=== PATIENT | male | born 1980 | race Caucasian/White ===

== ENCOUNTER → 2018-07-04 15:29 | Outpatient (CLI) | payer OTHER, SELFPAY ==
--- NOTE | 2018-07-04 15:34 | MR_ITS ---
MR knee RT wo con HISTORY: Medial knee pain, recent injury ITS.REASON: rule out MCL tear ORDERING PHYSICIAN: Dave Nagel MD PATIENT AGE: 38 years Comparison: 06/30/2018 TECHNIQUE: Standard multiplanar multiecho sequences are performed without contrast. FINDINGS: The cruciate ligaments, lateral collateral ligament, quadriceps tendon, and popliteal tendons haven't unremarkable appearance. There is discontinuity of the superior aspect of the medial collateral ligament at its insertion on the medial femoral condyle consistent with a grade 3 complete tear of the left MCL. Small amount of edema is present around the ligament tear. No meniscal tear is evident. The patellar cartilage is slightly thinned that homogeneous. There is minimal lateral patellar subluxation. The medial patellofemoral ligament also is discontinuous medially consistent with tear of the medial patellofemoral ligament. Small amount of edema is present within the soft tissues of the anterior medial aspect of the knee. No fracture or bone bruise. IMPRESSION: 1. Grade 3 complete tear of the medial collateral ligament superiorly with minimal retraction of the ligamentous fibers. 2. Tear of the medial patellofemoral ligament with edema in the soft tissues in the anteromedial aspect of the knee with minimal lateral patellar subluxation
== END ==
PROVIDERS: PCP Internal Medicine; Visit Provider Orthopaedic Surgery
DX: S83.401A Sprain of unspecified collateral ligament of right knee, initial encounter (principal); S89.91XA Unspecified injury of right lower leg, initial encounter
CPT/HCPCS: 73721

== ENCOUNTER 2018-07-12 10:38 | Outpatient (RCR) | payer OTHER, SELFPAY | END 2018-07-12 10:45 | disposition home or self-care (01) | LOC: PT 10:38 | PROVIDERS: Visit Provider Orthopaedic Surgery | DX: M25.561 Pain in right knee (principal) | CPT/HCPCS: 97760 ==

== ENCOUNTER → 2019-05-02 07:22 | Outpatient (CLI) | payer OTHER, SELFPAY ==
[2019-05-02 13:46] LABS: Alanine Aminotransferase 95 U/L (12-78); Albumin Level 4.1 g/dl (3.5-5.0); Albumin/Globulin Ratio 1.4 (1.1-1.8); Alkaline Phosphatase 60 U/L (38-126); Anion Gap 11.8 mEq/L (5-15); Aspartate Amino Transferase 49 U/L (17-59); Bilirubin,Total 0.6 mg/dl (0.2-1.3); Blood Urea Nitrogen 18 mg/dl (9-20); Calcium 9.2 mg/dl (8.4-10.2); Carbon Dioxide 25 mmol/L (22.0-30.0); Chloride 105 mmol/L (98-107); Chol/HDL Ratio 6.1 (1-3.5); Cholesterol 225 mg/dl (140-200); Estimated Glomerular Filt Rate 108 ml/min (>60); GFR (African American) 130 ML/MIN (>60); Glucose 127 mg/dl (74-100); HDL Cholesterol 37 mg/dl (40-60); Potassium 4.8 mmoL/L (3.5-5.1); Sodium 137 mmol/L (136-145); Total Protein,Serum 7.1 g/dl (6.3-8.2); Triglycerides 125 mg/dl (30-150); VLDL Cholesterol 25 mg/dL (0-40)
[2019-05-02 13:57] LABS: Direct LDL Cholesterol 188.52 mg/dL (100-129)
[2019-05-02 15:38] LABS: Hemoglobin A1C 6.7 % (4.0-6.0)
[2019-05-03 08:29] LABS: Hep A Ab, IgM Negative (Negative); Hepatitis B Core Antibody IgM Negative (Negative); Hepatitis B Surface Antigen Negative (Negative)
[2019-05-03 12:37] LABS: Hepatitis C Antibody <0.1 s/co ratio (0.0-0.9)
== END ==
PROVIDERS: Visit Provider Internal Medicine
DX: E78.5 Hyperlipidemia, unspecified (principal); E66.9 Obesity, unspecified; R94.5 Abnormal results of liver function studies; R73.09 Other abnormal glucose
CPT/HCPCS: 36415; 80053; 80061; 80074; 83036

== ENCOUNTER → 2020-06-03 08:21 | Outpatient (CLI) | payer OTHER, SELFPAY ==
[2020-06-03 09:01] LABS: Microscopic, Urine URINE MICROSCOPIC (MICROSCOPIC)
[2020-06-03 14:53] LABS: Basophils # 0.1 K/mm3 (0-0.2); Basophils % 0.7 % (0.1-2.0); Eosinophils # 0.4 K/mm3 (0.0-0.4); Eosinophils % 3.7 % (0.1-12.0); Hematocrit 47.1 % (42.0-52.0); Hemoglobin 15.8 g/dL (14.1-18.0); Lymphocytes # 3.1 K/mm3 (0.7-4.5); Lymphocytes % 28.7 % (10-50); Mean Corpuscular HGB Conc 33.5 g/dL (31.8-35.4); Mean Corpuscular Hemoglobin 30.2 pg (27.0-31.2); Mean Corpuscular Volume 90.2 fl (80-94); Mean Platelet Volume 8.2 fl (7.4-10.4); Monocytes # 0.6 K/mm3 (0.1-1.0); Monocytes % 5.5 % (1.7-9.3); Neutrophils # 6.5 K/mm3 (1.8-7.8); Neutrophils % 61.3 % (37.0-80.0); Platelet Count 299 K/mm3 (142-424); Red Blood Count 5.23 M/mm3 (4.60-6.20); Red Cell Distribution Width 13.6 % (11.5-17.5); White Blood Count 10.6 K/mm3 (4.8-10.8)
[2020-06-03 15:06] LABS: Appearance,Urine CLEAR (Clear); Bilirubin,Urine Negative (Negative); Blood, Urine Negative (Negative); Color,Urine YELLOW (Yellow); Glucose,Urine (UA) 1+ (Negative); Ketones,Urine Negative (Negative); Leukocyte Esterase,Urine Negative (Negative); Nitrate,Urine Negative (Negative); PH,Urine 5.5 (5.0-8.5); Protein,Urine Negative (Negative); Specific Gravity, Urine >= 1.030 (1.005-1.030); Urobilinogen,Urine 0.2 EU/dl (0.2)
[2020-06-03 15:10] LABS: Alanine Aminotransferase 174 U/L (12-78); Albumin Level 4.5 g/dl (3.5-5.0); Albumin/Globulin Ratio 1.5 (1.1-1.8); Alkaline Phosphatase 77 U/L (38-126); Anion Gap 13.7 mEq/L (5-15); Aspartate Amino Transferase 110 U/L (17-59); Bilirubin,Total 1.1 mg/dl (0.2-1.3); Blood Urea Nitrogen 14 mg/dl (9-20); Calcium 9.8 mg/dl (8.4-10.2); Carbon Dioxide 27 mmol/L (22.0-30.0); Chloride 102 mmol/L (98-107); Cholesterol 188 mg/dl (140-200); Estimated Glomerular Filt Rate 93 ml/min (>60); GFR (African American) 113 ML/MIN (>60); Glucose 222 mg/dl (74-100); HDL Cholesterol 47 mg/dl (40-60); Potassium 4.7 mmoL/L (3.5-5.1); Sodium 138 mmol/L (136-145); Total Protein,Serum 7.5 g/dl (6.3-8.2); Triglycerides 128 mg/dl (30-150); VLDL Cholesterol 26 mg/dL (0-40)
[2020-06-03 15:21] LABS: Direct LDL Cholesterol 120.56 mg/dL (100-129); Hemoglobin A1C 8.6 % (4.0-6.0)
[2020-06-03 15:26] LABS: 25-OH Vitamin D, Total 23.9 ng/mL (30-100)
[2020-06-03 15:40] LABS: Thyroid Stimulating Hormone 2.82 uIU/mL (0.465-4.68)
[2020-06-03 16:33] LABS: Bacteria,Urine Trace /lpf; RBC,Urine Occasional #/hpf (0-3); Squamous Epithelial Cell,Urine Occasional #/hpf (0-5)
== END ==
PROVIDERS: Visit Provider Internal Medicine
DX: D72.829 Elevated white blood cell count, unspecified (principal); E11.9 Type 2 diabetes mellitus without complications; I10 Essential (primary) hypertension; E55.9 Vitamin D deficiency, unspecified; E78.5 Hyperlipidemia, unspecified
CPT/HCPCS: 36415; 80053; 80061; 81001; 82043; 82306; 83036; 84443; 85025

== ENCOUNTER 2020-06-17 08:00 | Outpatient (RCR) | payer OTHER, SELFPAY | END 2020-07-03 13:50 | disposition home or self-care (01) | LOC: PT.CARL 08:00 | PROVIDERS: PCP Internal Medicine; Visit Provider Orthopaedic Surgery | DX: M79.671 Pain in right foot (principal); M19.071 Primary osteoarthritis, right ankle and foot; S93.524A Sprain of metatarsophalangeal joint of right lesser toe(s), initial encounter | CPT/HCPCS: 97110; 97112; 97140; 97163 ==

== ENCOUNTER 2021-01-24 09:49 | Emergency (ER) | payer OTHER, SELFPAY ==
[2021-01-24] VITALS (12 sets, daily range): BP systolic 118–150; BP diastolic 71–109; PULSE 60–73; RESP 15–22; TEMP 36.9; O2SAT 97–100; BMI 43.1
--- NOTE | 2021-01-24 09:49 | ECG_ITS ---
APPROVED REPORT Exam: Resting ECG HR:66 bpm ECG Measurements Heart Rate 66 AXES ME 178 P 34 QRSd 108 QRS 72 QT 396 T 51 QTc 415 Conclusion Normal sinus rhythm Normal ECG Electronically signed by : Forrest Germain MD 01/24/2021 19:26:39
--- NOTE | 2021-01-24 10:02 | XR_ITS ---
PROCEDURE INFORMATION: Exam: XR Chest Exam date and time: 01/24/2021 10:02 AM Age: 40 years old Clinical indication: Shortness of breath; Other: Generalized chest pain TECHNIQUE: Imaging protocol: XR of the chest. Views: 2 views. COMPARISON: No relevant prior studies available. FINDINGS: Lungs: No focal airspace disease. Pleural spaces: Unremarkable. No pleural effusion. No pneumothorax. Heart/Mediastinum: Cardiomediastinal silhouette is within normal limits. Bones/joints: Unremarkable. IMPRESSION: No acute cardiopulmonary abnormality.
--- NOTE | 2021-01-24 10:10 | PC.NURSE ---
Patient was taken to XRAY.
[2021-01-24 10:19] LABS: Basophils # 0.1 K/mm3 (0-0.2); Basophils % 1.1 % (0.1-2.0); Eosinophils # 0.2 K/mm3 (0.0-0.4); Eosinophils % 2.6 % (0.1-12.0); Hematocrit 49.8 % (42.0-52.0); Mean Corpuscular HGB Conc 34.2 g/dL (31.8-35.4); Mean Corpuscular Hemoglobin 30.5 pg (27.0-31.2); Mean Corpuscular Volume 89.1 fl (80-94); Mean Platelet Volume 7.6 fl (7.4-10.4); Monocytes # 0.5 K/mm3 (0.1-1.0); Monocytes % 5.6 % (1.7-9.3); Neutrophils # 4.8 K/mm3 (1.8-7.8); Neutrophils % 55.7 % (37.0-80.0); Platelet Count 277 K/mm3 (142-424); Red Blood Count 5.58 M/mm3 (4.60-6.20); Red Cell Distribution Width 13.2 % (11.5-17.5); White Blood Count 8.6 K/mm3 (4.8-10.8)
--- NOTE | 2021-01-24 10:20 | PC.NURSE ---
Patient is back in room from XRAY.
[2021-01-24 10:23] LABS: Chloride 102 mmol/L (98-107); Potassium 4.5 mmoL/L (3.5-5.1); Sodium 138 mmol/L (136-145)
[2021-01-24 10:26] LABS: Anion Gap 13.5 mEq/L (5-15); Blood Urea Nitrogen 18 mg/dl (9-20); Calcium 9.3 mg/dl (8.4-10.2); Carbon Dioxide 27 mmol/L (22.0-30.0); Creatinine Clearance Estimated 133 mL/min (50-200); Estimated Glomerular Filt Rate 107 ml/min (>60); GFR (African American) 129 ML/MIN (>60); Glucose 115 mg/dl (74-100)
[2021-01-24 10:40] LABS: Troponin I < 0.01 ng/ml (0.00-0.034)
--- NOTE | 2021-01-24 11:43 | HMH.EDGENADL ---
ED Disposition Clinical Impression: Chest pain Qualifiers: Chest pain type: unspecified Qualified Code(s): R07.9 - Chest pain, unspecified Disposition: Home, Self-Care Condition on Discharge: Good Referrals: Damon Renteria [Primary Care Provider] - Jens Blackburn MD [Staff Physician] - - Critical Care Critical Care Time: No Attestation: On 01/24/21, the high probability of a clinically significant, sudden or life threatening deterioration of the following system(s) required my full and direct attention, intervention and personal management. The time I documented below is in addition to time spent performing reported procedures but includes the following listed in this critical care notation. Medical Decision Making - Medical Records Medical records reviewed: Yes: I reviewed the patient's medical records. - Robbie Inquiry Pt receiving controlled substance: No Vital Signs: 01/24/21 10:05 01/24/21 10:58 01/24/21 11:01 Temperature 98.5 F Temperature Source Oral Pulse Rate 67 70 Pulse Rate [Left Radial] 70 Respiratory Rate 20 16 15 Blood Pressure 141/90 H 129/80 Blood Pressure [Right Arm] 134/83 Blood Pressure Mean 101 103 Blood Pressure Mean [Right Arm] 100 Blood Pressure Source [Right Arm] Automatic Cuff Blood Pressure Position [Right Arm] Sitting 02 Sat by Pulse Oximetry 99 97 97 Oxygen Delivery Method Room Air Room Air Room Air 01/24/21 11:31 01/24/21 12:00 01/24/21 12:31 Temperature Temperature Source Pulse Rate 64 66 63 Pulse Rate [Left Radial] Respiratory Rate 17 17 22 Blood Pressure 135/79 150/83 H 137/76 Blood Pressure [Right Arm] Blood Pressure Mean 95 100 92 Blood Pressure Mean [Right Arm] Blood Pressure Source [Right Arm] Blood Pressure Position [Right Arm] 02 Sat by Pulse Oximetry 97 99 100 Oxygen Delivery Method Room Air 01/24/21 13:01 01/24/21 13:12 01/24/21 13:14 Temperature Temperature Source Pulse Rate 73 66 66 Pulse Rate [Left Radial] Respiratory Rate 18 20 18 Blood Pressure 126/109 H 126/79 118/71 Blood Pressure [Right Arm] Blood Pressure Mean 113 94 86 Blood Pressure Mean [Right Arm] Blood Pressure Source [Right Arm] Blood Pressure Position [Right Arm] 02 Sat by Pulse Oximetry 99 100 99 Oxygen Delivery Method 01/24/21 13:30 01/24/21 14:00 Temperature Temperature Source Pulse Rate 60 63 Pulse Rate [Left Radial] Respiratory Rate 18 17 Blood Pressure 134/80 132/82 Blood Pressure [Right Arm] Blood Pressure Mean 94 98 Blood Pressure Mean [Right Arm] Blood Pressure Source [Right Arm] Blood Pressure Position [Right Arm] 02 Sat by Pulse Oximetry 100 100 Oxygen Delivery Method - Lab Data Lab Results 01/24/21 10:00: WBC 8.6, RBC 5.58, Hgb 17.0, Hct 49.8, MCV 89.1, MCH 30.5, MCHC 34.2, RDW 13.2, Plt Count 277, MPV 7.6, Neut % (Auto) 55.7, Lymph % (Auto) 35.0, [place] % (Auto) 5.6, Eos % (Auto) 2.6, Baso % (Auto) 1.1, Neut # (Auto) 4.8, Lymph # (Auto) 3.0, [place] # (Auto) 0.5, Eos # (Auto) 0.2, Baso # (Auto) 0.1 01/24/21 10:00: Sodium 138, Potassium 4.5, Chloride 102, Carbon Dioxide 27, Anion Gap 13.5, BUN 18, Creatinine 0.80, Estimated Creat Clear 133, Estimated GFR 107, Est GFR ( Amer) 129, Glucose 115 H, Calcium 9.3, Troponin I < 0.01 01/24/21 13:12: Troponin I < 0.01 Result diagrams: 01/24/21 10:00 01/24/21 10:00 Orders (Tests/Meds): ED MEDICATIONS Discontinued Medications Generic Name Dose Route Start Last Admin Trade Name Freq PRN Reason Stop Dose Admin Aspirin 324 mg 01/24/21 10:02 01/24/21 10:03 Aspirin 81mg Chewable Tablet PO 01/24/21 10:03 324 mg ONCE ONE Administration ORDERS Category Date Time Status Troponin I Q3H Lab 01/24/21 16:15 Ordered - COLT Score for Non-Stemi Age of Patient: 40-49 years old Heart Rate: 110-149 bpm Systolic Blood Pressure: 80-99 mmHg Serum Creatinine: 0.80-1.19 mg/dl CHF [place] Class: I-No CHF Other
[2021-01-24 14:00] LABS: Troponin I < 0.01 ng/ml (0.00-0.034)
== END 2021-01-24 14:30 | disposition home or self-care (01) ==
PROVIDERS: Emergency Provider Student in an Organized Health Care Education/Training Program; PCP Family Medicine
DX: R07.9 Chest pain, unspecified (principal); R42 Dizziness and giddiness; F33.1 Major depressive disorder, recurrent, moderate
CPT/HCPCS: 71046; 80048; 84484; 85025; 93005; 99283

== ENCOUNTER → 2021-02-11 06:16 | Outpatient (CLI) | payer OTHER, SELFPAY ==
--- NOTE | 2021-02-11 06:17 | CA_ITS ---
APPROVED REPORT Exam: Pharmacologic Technologist: Ivelisse Perdue, Ht: 6 ft 0 in Wt: 316 lbs BSA: 2.59 m2 HR: 63 bpm BP: 127/79 mmHg Rhythm: NSR/ PVCS, RIGHTWARD AXIS, T WAVE ABNS INFERIORLY Medical History Medical History: HTN, Hyperlipidemia, Diabetes Medications: Gabapentin,,,,, Fish Oil,,,,, Zetia,,,,, Atorvastatin,,,,, Escitalopram,,,,, D3,,,,, JaRDiance,,,,, Lisinopri/HCTZ,,,,, Allergies: No known drug allergies Cardiac Risk Factors: HTN, Hyperlipidemia, Diabetes Stress Test Details Test: LEXISCAN HR Resting HR: 64 bpm Max Heart Rate (APMHR): 179.451395 bpm Max HR Achieved: 108 bpm Target HR (85% APMHR): 152.609614 bpm % of APMHR: 60.34 Recovery HR: 80 bpm BP Resting BP: 127/79 mmHg Max BP: 142/76 mmHg Recovery BP: 123.0/80.0 mmHg ECG Resting ECG: NSR/ PVCS, RIGHTWARD AXIS, T WAVE ABNS INFERIORLY Clinical Exercise duration: 04:01 min Highest Stage Achieved: Exercise capacity: 1.0 METs Stress ECG Conclusion PT HAD BRIEF CHEST TIGHTNESS, SOA, DIZZY. MODERATELY FREQUENT PVCS. MILD EXAGGERATION OF BASELINE T WAVE ABNS. NON-DIAGNOSTIC LEXISCAN STRESS. MYOVIEW IMAGES REPORTED SEPARATELY. Test Summary REST 05:03 . . 64 . 127/ 79 . . Stage 1 01:00 . . 101 . . . . Stage 2 01:00 . . 95 . 141/ 89 . . Stage 3 01:00 . . 83 . 136/ 88 . . Stage 4 01:00 . . 87 . 131/ 79 . . Stage 4 01:01 . . 87 . 131/ 79 . Stop exercise at 04:01 RECOVERY 01:00 . . 79 . . . . RECOVERY 02:00 . . 86 . 142/ 76 . . RECOVERY 03:00 . . 82 . 123/ 80 . . RECOVERY 03:26 . . 84 . 123/ 80 . . Electronically signed by : Sadi Ziegler MD 02/11/2021 20:38:00
--- NOTE | 2021-02-11 06:17 | CA_ITS ---
APPROVED REPORT EXAM: Comprehensive 2D, Doppler, and color-flow Echocardiogram Film Developer: Gabbi Cuevas, RAZIA, RVS Ht: 6 ft 0 in Wt: 316lbs BSA: 2.59 BP: 120/80 mmHg Indications: Cp, SOB, HTN, DM, HLD, Abn EKG 2D Dimensions LVOT 2.09 cm (M/F) 1.5-2.5 LA Volume 55.20 mL LA Volume Index 21.30 mL/m2 (M/F) 16-34 M-Mode Dimensions RVDd 2.81 cm (0.9-2.6) LA Diam 4.04 cm (1.9-4.0) LVDd 5.02 cm (3.5-5.7) Ao Diam 2.95 cm (2.0-3.7) LVDs 3.19 cm (3.5-5.7) IVSd 1.22 cm (0.6-1.1) PWd 1.22 cm (0.6-1.1) EF (Teich) 66.00% EPSs 0.30 cm FS 36.50% EDV (Teich) 119.30 mL TAPSE 3.06 (<1.7) ESV (Teich) 40.60 mL LV Diastology E Decel Time 213.00 (160-240 msec) E/A Ratio 1.34 MED E' 7.80 (< 7 cm/sec) MED A' 9.40 cm/s E'/MED E' Ratio 13.21 (>14) LAT E' 10.50 (<10 cm/sec) LAT A' 7.70 cm/s E/LAT E' Ratio 9.81 (>14) Aortic Valve LVOT Max 112.00 (70-110 cm/s) LVOT VTI 26.47 cm AoV Peak [place]. 138.00 (50-130 cm/s) AO Peak GR. 7.70 mmHg AO Mean GR. 3.90 (<5 mmHg) AO VTI 32.62 (18-25 cm) SON (VTI) 2.78 (2.5-4.5 cm2) Mitral Valve MV A Velocity 77.00 (40-130 cm/s) E/A Ratio 1.34 MV Decel. Time 213.00 (160-240 ms) Pulmonary Valve PV Peak Velocity 111.00 (50-150 cm/s) Tricuspid Valve TR P. Velocity 168.00 cm/s RAP Estimate 10.00 mmHg RVSP 21.30 mmHg Left Ventricle Left atrium is normal size, left ventricle is normal size, there is no concentric left ventricular hypertrophy, visually estimated ejection fraction 55% with no regional wall motion abnormality, diastolic parameters are within normal range. Right Ventricle Right atrium and right ventricular size and contractility. Aortic Valve Aortic valve is grossly normal, there is no aortic stenosis or aortic insufficiency. Mitral Valve Mitral valve grossly normal, there is trace mitral regurgitation. Tricuspid Valve Tricuspid grossly normal, there is trace tricuspid regurgitation, tricuspid regurgitation jet velocity is inadequate for calculation of the right ventricular systolic pressure. Pulmonic Valve Pulmonic valve is poorly visualized. Great Vessels Aortic root is normal size. Inferior vena cava normal size with normal inspiratory collapse. Pericardium No significant pericardial effusion noted. Conclusion 1. Normal left ventricular size, preserved left ventricular systolic function, visually estimated ejection fraction 55% with no regional wall motion abnormality, diastolic parameters are within normal range. 2. Trace mitral and tricuspid regurgitation. 3. No significant pericardial effusion noted. 4. Inferior vena cava is normal size with normal inspiratory collapse. Electronically signed by : Sadi Ziegler MD 02/11/2021 20:15:43
--- NOTE | 2021-02-11 06:17 | CT_ITS ---
PROCEDURE: CT CHEST WO CON CLINICAL INDICATION: cp/dyspnea/abnl ecg COMPARISON: No exams were available for comparison TECHNIQUE: Axial images obtained with sagittal and coronal reformats. All CT scans at the facility use one or more dose reduction, viz: automated exposure control, ma/kV adjustment per patient size (including targeted exams where dose is matched to indication, i.e. head), or iterative reconstruction technique. FINDINGS: HEART AND MEDIASTINAL STRUCTURES: The left lobe of the thyroid gland is enlarged with heterogeneous density and coarse calcification. The left lobe measures at least 5.3 x 3.5 cm with the superior aspect of the thyroid gland not imaged. There is moderate rightward tracheal deviation by approximately 1.4 cm with moderate narrowing of the trachea... The no mediastinal or hilar mass or adenopathy. LUNGS AND PLEURAL SPACES: Unremarkable. BONY STRUCTURES: No acute bony abnormalities apparent. UPPER ABDOMEN: Possible cholelithiasis. There are few scattered small nodes in the mesenteric axis region and periportal area. These are nonspecific. ADDITIONAL FINDINGS: Gynecomastia IMPRESSION: 1. Enlarged left lobe of the thyroid gland with heterogeneous density and coarse calcifications consistent with left-sided goiter. This is causing moderate tracheal shift to the right by 1.4 cm and moderate narrowing of the trachea. 2. Other nonacute findings as described above. Dictated by: Lizandro Mcgovern MD 02/12/2021 08:09 Lizandro Mcgovern MD in [facility] 02/12/2021 08:09
--- NOTE | 2021-02-11 06:17 | NM_ITS ---
APPROVED REPORT Exam: Nuclear Stress Test Indication: Chest pain, SOB, Abnormal EKG, HTN, DM, High cholesterol, Family history Patient Location: Outpatient Stress Tech: Ivelisse Perdue ID Tech:Esperanza Alberts, ARRT, RT (R)(N) Ht: 6 ft 0 in Wt: 318 lbs HR: 64 bpm BP: 127/79 mmHg BSA: 2.59 m2 History: Chest pain, SOB, Abnormal EKG, HTN, DM, High cholesterol, Family history Procedure: Patient received a 0.4 mg of intravenous Lexiscan, resting heart rate 64 bpm, resting blood pressure 127/79 mmHg, with Lexiscan maximum heart rate achived was 108 bpm which is Less than 85 % of the maximum predicted heart rate and blood pressure was 142/76 mmHg. With Lexiscan, patient denied any complaint of chest pain. Electrocardiogram Resting electrocardiogram shows sinus rhythm, with Lexiscan there is less than 1.[address] segment depression noted from the baseline EKG. The EKG portion of the Lexiscan is nondiagnostic. Cardiac Stress and Resting SPECT Images: Cardiac Stress and Resting SPECT images were obtained using technetium 99m Myoview 31.8 mCi stress and 10.10 mCi at rest. Gated SPECT for analysis of segmental wall motion and calculation of the ejection fraction also done. Cardiac stress and resting SPECT images show uniform myocardial activity without segmental perfusion abnormality, computer derived ejection fraction 50% with no regional wall motion abnormality, however there is transient ischemic dilatation of the left ventricle seen, raising the concerns for presence of balanced ischemia. Conclusion: 1. The EKG portion of the Lexiscan is nondiagnostic. 2. No scintigraphic evidence of reversible ischemia seen, computer derived ejection fraction is 50% with no regional wall motion abnormality, right ventricle is normal size and contractility. However there is transient ischemic dilatation of the left ventricle seen, raising the concern for presence of balanced ischemia other causes for transient ischemic dilatation includes hypertensive heart disease, elevated left ventricular diastolic dysfunction, diabetes mellitus and microvascular disease. Clinical correlation is recommended. 3. Abnormal Lexiscan Myoview study. Electronically signed by : Sadi Ziegler MD 02/11/2021 21:00:02
--- NOTE | 2021-02-11 08:14 | HMH.ITSHM ---
Current Home Medications as stated by this patient Misael Salinas or maintenance representative. []OMEGA 3 LISINOPRIL GABAPENTIN EZETIMIBE EMPAGLIFLOZIN VITAMIN D3 ATORVASTATIN LEXAPRO
== END ==
PROVIDERS: PCP Family Medicine; Visit Provider Physician Assistant
DX: R06.00 Dyspnea, unspecified (principal); R07.9 Chest pain, unspecified; I10 Essential (primary) hypertension; R94.31 Abnormal electrocardiogram [ECG] [EKG]; E11.9 Type 2 diabetes mellitus without complications; E78.5 Hyperlipidemia, unspecified
CPT/HCPCS: 71250; 78452; 93017; 93306; A9502; J2785

== ENCOUNTER → 2021-02-24 11:14 | Outpatient (CLI) | payer OTHER, SELFPAY ==
[2021-02-24 12:09] LABS: Basophils # 0.1 K/mm3 (0-0.2); Basophils % 0.6 % (0.1-2.0); Eosinophils # 0.3 K/mm3 (0.0-0.4); Eosinophils % 2.8 % (0.1-12.0); Hematocrit 50.5 % (42.0-52.0); Hemoglobin 17.2 g/dL (14.1-18.0); Lymphocytes # 2.9 K/mm3 (0.7-4.5); Lymphocytes % 32.9 % (10-50); Mean Corpuscular HGB Conc 34.1 g/dL (31.8-35.4); Mean Corpuscular Hemoglobin 30.7 pg (27.0-31.2); Mean Platelet Volume 7.2 fl (7.4-10.4); Monocytes # 0.5 K/mm3 (0.1-1.0); Monocytes % 5.9 % (1.7-9.3); Neutrophils # 5.2 K/mm3 (1.8-7.8); Neutrophils % 57.8 % (37.0-80.0); Platelet Count 285 K/mm3 (142-424); Red Blood Count 5.61 M/mm3 (4.60-6.20); Red Cell Distribution Width 12.6 % (11.5-17.5); White Blood Count 8.9 K/mm3 (4.8-10.8)
[2021-02-24 12:50] LABS: Chloride 101 mmol/L (98-107)
[2021-02-24 12:51] LABS: Potassium 4.9 mmoL/L (3.5-5.1); Sodium 136 mmol/L (136-145)
[2021-02-24 12:54] LABS: Anion Gap 12.9 mEq/L (5-15); Blood Urea Nitrogen 17 mg/dl (9-20); Calcium 9.3 mg/dl (8.4-10.2); Carbon Dioxide 27 mmol/L (22.0-30.0); Estimated Glomerular Filt Rate 107 ml/min (>60); GFR (African American) 129 ML/MIN (>60); Glucose 110 mg/dl (74-100)
== END ==
PROVIDERS: Visit Provider Physician Assistant
DX: Z01.812 Encounter for preprocedural laboratory examination (principal); Z11.52 Encounter for screening for COVID-19; R06.00 Dyspnea, unspecified; I20.9 Angina pectoris, unspecified; R94.30 Abnormal result of cardiovascular function study, unspecified; R94.31 Abnormal electrocardiogram [ECG] [EKG]; I10 Essential (primary) hypertension; E11.9 Type 2 diabetes mellitus without complications; E78.5 Hyperlipidemia, unspecified
CPT/HCPCS: 36415; 80048; 85025; C9803; U0003; U0005

== ENCOUNTER 2021-02-25 10:27 | Day surgery (SDC) | payer OTHER, SELFPAY ==
[2021-02-25] VITALS (11 sets, daily range): BP systolic 91–152; BP diastolic 59–85; PULSE 58–73; RESP 13–19; O2SAT 95–98; BMI 43.4
--- NOTE | 2021-02-25 07:07 | IR_ITS ---
APPROVED REPORT Patient Location: Outpatient Cutter Brake Lining: CHAS Shelby RT (R) PROCEDURES Left heart catheterization Left ventriculogram Selective coronary angiogram INDICATION Abnormal Myoview, Angina pectoris, Numerous risk factors for coronary disease Informed consent was obtained prior to the procedure. COMPLICATIONS NONE Estimated Blood Loss: LESS THAN 10 ML TECHNIQUE One percent lidocaine used to anesthetize the right anterior aspect of the wrist. The right radial artery was accessed via the Seldinger technique. A 6 [place] sheath was placed in the right radial artery. 2.5 mg of verapamil, 800 mcg of nitroglycerin, 1mg Lidocaine and 5000 U Heparin were given through the arterial sheath. The trap catheter was also used to perform left heart catheterization, left ventriculogram and selective coronary angiogram. At the end of the procedure the sheath was removed good hemostasis was achieved using Traclet band, patient was transferred to the postop holding area in stable condition. ANGIOGRAPHIC RESULTS The left main artery Normal The left anterior descending artery Has proximal mid vessel mild 10% luminal irregularities. CARMELO II flow was present down the vessel The circumflex artery Nondominant normal accompanied by CARMELO II flow The right coronary artery Massively large dominant and normal accompanied by CARMELO II flow The [place] ventriculogram reveals Normal 65% The left ventricular end-diastolic pressure 30 mmHg IMPRESSION Mild nonocclusive coronary artery disease Diffuse slow flow down the coronary arteries consistent with endothelial dysfunction as well as diastolic dysfunction Normal ejection fraction Moderate to severely elevated LVEDP Patient's angina pectoris is caused by diffuse slow flow down the coronary arteries which is likely a combination from diabetes induced endothelial dysfunction as well as diastolic dysfunction causing the elevated LVEDP. PLAN 1. Start loop diuretics combined with spironolactone for treatment of diastolic dysfunction 2. Sleep study 3. Weight loss and exercise 4. LDL less than 55 5. Aggressive control of diabetes 6. Start long-acting nitrates and possibly adding Ranexa if angina continues 7. Avoidance of tobacco products Electronically signed by : Jens Blackburn MD 02/25/2021 13:48:52
== END 2021-02-25 16:12 | disposition home or self-care (01) ==
LOC: CATHLAB 10:29
PROVIDERS: PCP Family Medicine; Visit Provider Internal Medicine
DX: I25.110 Atherosclerotic heart disease of native coronary artery with unstable angina pectoris (principal); E11.9 Type 2 diabetes mellitus without complications; E78.5 Hyperlipidemia, unspecified; I10 Essential (primary) hypertension; R94.30 Abnormal result of cardiovascular function study, unspecified; R94.31 Abnormal electrocardiogram [ECG] [EKG]; Z79.899 Other long term (current) drug therapy
CPT/HCPCS: 93458; 99152; C1725; C1760; C1769; J1644; Q9967

== ENCOUNTER 2021-03-09 16:00 | Outpatient (RCR) | payer OTHER, SELFPAY | END 2021-03-30 10:50 | disposition home or self-care (01) | LOC: PT.CARL 16:00 | PROVIDERS: PCP Family Medicine; Visit Provider Family Medicine | DX: M54.50 Low back pain, unspecified (principal) | CPT/HCPCS: 97012; 97110; 97140; 97163 ==

== ENCOUNTER → 2021-06-04 07:42 | Outpatient (CLI) | payer OTHER, SELFPAY ==
[2021-06-04 14:39] LABS: Blood Urea Nitrogen 23 mg/dl (9-20); Calcium 9.1 mg/dl (8.4-10.2); Carbon Dioxide 25 mmol/L (22.0-30.0); Chloride 103 mmol/L (98-107); Estimated Glomerular Filt Rate 93 ml/min (>60); GFR (African American) 112 ML/MIN (>60); Glucose 138 mg/dl (74-100); Sodium 135 mmol/L (136-145)
== END ==
PROVIDERS: Visit Provider Physician Assistant
DX: I10 Essential (primary) hypertension (principal); E11.9 Type 2 diabetes mellitus without complications; E78.2 Mixed hyperlipidemia; G47.33 Obstructive sleep apnea (adult) (pediatric); R94.30 Abnormal result of cardiovascular function study, unspecified; R94.31 Abnormal electrocardiogram [ECG] [EKG]
CPT/HCPCS: 36415; 80048

== ENCOUNTER → 2022-03-31 10:42 | Outpatient (CLI) | payer BC, SELFPAY ==
[2022-03-31 11:32] LABS: Basophils # 0.1 K/mm3 (0-0.2); Eosinophils # 0.3 K/mm3 (0.0-0.4); Eosinophils % 2.7 % (0.1-12.0); Hematocrit 46.9 % (42.0-52.0); Hemoglobin 15.9 g/dL (14.1-18.0); Lymphocytes # 2.8 K/mm3 (0.7-4.5); Lymphocytes % 30.7 % (10-50); Mean Corpuscular HGB Conc 33.9 g/dL (31.8-35.4); Mean Corpuscular Hemoglobin 30.8 pg (27.0-31.2); Mean Corpuscular Volume 91.1 fl (80-94); Mean Platelet Volume 7.7 fl (7.4-10.4); Monocytes # 0.5 K/mm3 (0.1-1.0); Monocytes % 5.6 % (1.7-9.3); Neutrophils # 5.6 K/mm3 (1.8-7.8); Platelet Count 324 K/mm3 (142-424); Red Blood Count 5.15 M/mm3 (4.60-6.20); Red Cell Distribution Width 13.4 % (11.5-17.5); White Blood Count 9.3 K/mm3 (4.8-10.8)
[2022-03-31 11:35] LABS: Hemoglobin A1C 6.7 % (4.0-6.0)
[2022-03-31 12:11] LABS: Chloride 102 mmol/L (98-107); Potassium 4.9 mmoL/L (3.5-5.1); Sodium 137 mmol/L (136-145)
[2022-03-31 12:13] LABS: Blood Urea Nitrogen 16 mg/dl (9-20); Estimated Glomerular Filt Rate 93 ml/min (>60); GFR (African American) 112 ML/MIN (>60)
[2022-03-31 12:14] LABS: Alanine Aminotransferase 70 U/L (12-78); Albumin Level 4.3 g/dl (3.5-5.0); Alkaline Phosphatase 73 U/L (38-126); Anion Gap 10.9 mEq/L (5-15); Aspartate Amino Transferase 50 U/L (17-59); Bilirubin,Direct 0.1 mg/dl (0.0-0.4); Bilirubin,Indirect 0.9 mg/dL (0.0-0.9); Calcium 9.2 mg/dl (8.4-10.2); Carbon Dioxide 29 mmol/L (22.0-30.0); Cholesterol 160 mg/dl (140-200); Glucose 130 mg/dl (74-100); Magnesium 1.8 mg/dl (1.6-2.3); Total Protein,Serum 7.3 g/dl (6.3-8.2); Triglycerides 144 mg/dl (30-150); VLDL Cholesterol 29 mg/dL (0-40)
[2022-03-31 12:15] LABS: Chol/HDL Ratio 3.6 (1-3.5); HDL Cholesterol 44 mg/dl (40-60)
[2022-03-31 12:26] LABS: Direct LDL Cholesterol 76.94 mg/dL (100-129)
[2022-03-31 12:30] LABS: Free T4 (Free Thyroxine) 0.96 ng/dl (0.78-2.19)
[2022-03-31 12:45] LABS: Thyroid Stimulating Hormone 2.77 uIU/mL (0.465-4.68)
== END ==
PROVIDERS: PCP Family Medicine; Visit Provider Physician Assistant
DX: I25.10 Atherosclerotic heart disease of native coronary artery without angina pectoris (principal); I10 Essential (primary) hypertension; E11.9 Type 2 diabetes mellitus without complications; E78.2 Mixed hyperlipidemia; R94.30 Abnormal result of cardiovascular function study, unspecified; R94.31 Abnormal electrocardiogram [ECG] [EKG]
CPT/HCPCS: 36415; 80048; 80061; 80076; 83036; 83735; 84439; 84443; 85025

== ENCOUNTER 2024-01-21 09:47 | Emergency (ER) | payer OTHER, SELFPAY ==
--- NOTE | 2024-01-21 09:54 | XR_ITS ---
PROCEDURE INFORMATION: Exam: XR Left Foot Exam date and time: 01/21/2024 9:54 AM Age: 43 years old Clinical indication: Pain; Foot; Left TECHNIQUE: Imaging protocol: Radiologic exam of the left foot. Views: 3 or more views. COMPARISON: CR Ankle L 01/21/2024 9:53 AM FINDINGS: Bones/joints: No acute fracture or dislocation. 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 Soft tissues: Normal. IMPRESSION: No acute findings.
--- NOTE | 2024-01-21 09:54 | XR_ITS ---
PROCEDURE INFORMATION: Exam: XR Left Ankle Exam date and time: 01/21/2024 9:53 AM Age: 43 years old Clinical indication: Pain; Ankle; Left TECHNIQUE: Imaging protocol: Radiologic exam of the left ankle. Views: 3 or more views. COMPARISON: No relevant prior studies available. FINDINGS: Bones/joints: Normal. Soft tissues: Normal. IMPRESSION: No acute findings.
[2024-01-21 11:00] VITALS: BP 126/73; PULSE 82; RESP 20; TEMP 36.6; O2SAT 97; BMI 41.7
[2024-01-21 12:05] VITALS: BP 126/73; PULSE 82; RESP 20; TEMP 36.6; O2SAT 97
--- NOTE | 2024-01-21 18:55 | ED_ITS ---
Discharge Plan Disposition Patient Disposition: Home, Self-Care Prescriptions Prescriptions: No Action cholecalciferol (vitamin D3) [Vitamin D3] 125 mcg (5,000 unit) tablet 125 mcg PO DAILY citalopram 20 mg tablet 20 mg PO DAILY Patient Comments: TAKE 1 TABLET BY MOUTH EVERY DAY Trulicity 1.5 mg/0.5 mL pen injector 1.5 mg SQ WEEKLY aspirin 81 mg tablet,chewable 81 mg PO QDAY Qty: 100 3RF atorvastatin 80 mg tablet 80 mg PO HS Qty: 90 3RF spironolactone 50 mg tablet See Rx Instructions .ROUTE .COMPLEX Qty: 90 3RF Dose Instruction: TAKE 1 TABLET BY MOUTH EVERY DAY Rx Instructions: TAKE 1 TABLET BY MOUTH EVERY DAY metoprolol succinate 25 mg tablet extended release 24 hr See Rx Instructions .ROUTE .COMPLEX Qty: 90 3RF Dose Instruction: TAKE 1 TABLET BY MOUTH EVERY DAY Rx Instructions: TAKE 1 TABLET BY MOUTH EVERY DAY Clinical Impressions Clinical Impression: Ankle pain Print Language Print Language: [place] Discharge ED Provider: Rex Ireland [facility] General Stated complaint: Pain in L ankle, difficulty walking Mode of Arrival: Ambulatory Source of Information: Patient Limitations: No Limitations Time Seen by Provider: 01/21/24 11:00 Description of Symptoms (Recalled from Triage Doc. by RN): PATIENT C/O PAIN TO LEFT ANKLE AND FOOT WHEN WEIGHT IS PUT ON IT. NO KNOWN INJURY HEENT Symptoms (Recalled from RN notes): No Resp Symptoms (Recalled from RN notes): No Skin Symptoms (Recalled from RN notes): No MS Symptoms (Recalled from RN notes): Yes Functional Status (Recalled from RN notes): WNL Related Data Home Medications ?Medication ?Instructions ?Recorded ?Confirmed cholecalciferol (vitamin D3) 125 125 mcg PO DAILY 02/04/21 09/30/22 mcg (5,000 unit) tablet (Vitamin D3) citalopram 20 mg tablet 20 mg PO DAILY 09/30/22 09/30/22 dulaglutide 1.5 mg/0.5 mL 1.5 mg SQ WEEKLY 09/30/22 09/30/22 subcutaneous pen injector (Trulicity) Previous Rx's ?Medication ?Instructions ?Recorded aspirin 81 mg chewable tablet 81 mg PO QDAY #100 tabs 04/28/22 atorvastatin 80 mg tablet 80 mg PO HS #90 tabs 01/19/23 metoprolol succinate 25 mg See Rx Instructions .Route 07/07/23 tablet,extended release 24 hr .COMPLEX #90 tabs spironolactone 50 mg tablet See Rx Instructions .Route 07/07/23 .COMPLEX #90 tabs Allergies Allergy/AdvReac Type Severity Reaction Status Date / Time No Known Allergies Allergy Verified 09/30/22 14:26 Worker's Comp Is this a Worker's Comp case?: No [facility] Disclaimer: The information contained in this section may have been updated after the patient was seen, as this information can be updated by other users. Medical History Elevated left ventricular end-diastolic pressure (LVEDP) Social History Smoking Status: Current some day smoker tobacco type: cigars alcohol intake: current alcohol intake frequency: 3 or more drinks per day substance use type: denies use current occupational status: employed ROS Obtained: Yes All systems reviewed & no additional complaints except as documented Constitutional Constitutional: Denies chills and Denies fever(s) Eyes Eyes: Denies eye discharge ENT Ears, Nose, Mouth, and Throat: Denies dizziness, Denies otalgia and Denies sore throat Cardiovascular Cardiovascular: Denies chest pain Respiratory Respiratory: Denies shortness of breath, Denies chest congestion, Denies cough, Denies stridor and Denies wheezing Gastrointestinal Gastrointestingal: Denies nausea or vomiting Musculoskeletal Musculoskeletal: Reports as per HPI Integumentary/Breasts Skin/Breast: Denies rash Neurologic Neurologic: Denies dizziness and Denies paresthesias Allergic/Immunologic Allergic/Immunologic: Denies wheezing Physical Exam General General appearance: alert and in no apparent distress Head Head exam: atraumatic, normocephalic and normal inspection Eye Eye exam: Present normal appearance, PERRL and EOMI ENT ENT exam: Present normal exam, normal oropharynx, mucous membranes moist, TM's normal bilaterally and normal external ear exam Neck Neck exam: Present normal inspection, full ROM and trachea midline; Absent meningismus or lymphadenopathy Chest Chest inspection: Present normal inspection and symmetric chest wall rise; Absent tenderness Respiratory Respiratory exam: Present normal lung sounds bilaterally; Absent respiratory distress Cardiovascular Cardiovascular exam: Present regular rate and normal rhythm; Absent JVD Abdominal Exam Abdominal exam: Present soft and normal bowel sounds; Absent distention, tenderness or guarding Extremities Exam Extremities exam: Present normal capillary refill; Absent calf tenderness Expanded Lower Extremity Exam Left: Knee exam: Present normal inspection, full ROM and knee extension intact; Absent tenderness Lower leg exam: Present normal inspection, full ROM and Achilles tendon intact; Absent tenderness or Homans' sign Ankle exam: Present full ROM, tenderness and swelling; Absent abrasion, laceration, ecchymosis, deformity, crepitus, dislocation, erythema, tenderness over talofibular lig or anterior draw sign Foot/toe exam: Present normal inspection and full ROM; Absent tenderness, swelling, abrasion, laceration, ecchymosis, deformity, crepitus, dislocation, erythema, amputation, puncture wound, foreign body, calcaneal tenderness, tenderness at base of 5th metatarsal, nail avulsion or subungual hematoma Neurovascular/Tendon exam: Present normal capillary refill, normal 2-point discrimination and normal fine/light touch; Absent pulse deficit, motor deficit, sensory deficit, tendon deficit, extremity cold to touch or pallor Gait: observed and normal Back Exam Back exam: Present normal inspection; Absent tenderness Neurological Exam Neurological exam: Present alert and oriented X3 Psychiatric Psychiatric exam: Present normal affect and normal mood Skin Skin exam: Present warm, dry, intact and normal color Lymphatic Lymphatic Findings: no adenopathy Medical Decision Making Medical Records Screening: Per USPSTF and CDC recommendations, given the prevalence of disease in our region, it is our hospital?s policy to screen for HIV and viral Hepatitis for all patients aged 18 and over and those with ongoing risk factors. Robbie Inquiry Pt receiving controlled substance: No Vital Signs: 01/21/24 11:00 01/21/24 12:05 Temperature 97.9 F 97.9 F Temperature Source Oral Pulse Rate 82 Pulse Rate [Left Brachial] 82 Respiratory Rate 20 20 Blood Pressure 126/73 Blood Pressure [Left Arm] 126/73 Blood Pressure Mean [Left Arm] 90 Blood Pressure Source [Left Arm] Automatic Cuff Blood Pressure Position [Left Arm] Sitting 02 Sat by Pulse Oximetry 97 Oxygen Delivery Method Room Air Orders (Tests/Meds): ORDERS Category Date Time Status Ankle XR - Left minimum 3 Views [XR ankle LT min 3V] Exams 01/21/24 09:54 Completed Stat XR foot LT min 3V Stat Exams 01/21/24 09:54 Completed
== END 2024-01-21 12:08 | disposition home or self-care (01) ==
PROVIDERS: Emergency Provider Nurse Practitioner Family; PCP Family Medicine
DX: M79.672 Pain in left foot (principal)
CPT/HCPCS: 73610; 73630; 99213; G0381